=== PATIENT | female | born 1965 | race African-American/Black ===

== ENCOUNTER → 2016-11-28 | Outpatient (CLI) | payer OTHER ==
--- NOTE | 2016-11-28 13:42 | KCIC ---
Two views left foot Indication:Reason For Study Reason: LEFT ANKLE/FOOT PAIN AND SWELLING OFF AND ON 1 YR INCREASING THE PAST MONTH / Spl. Instructions: NO INJURY / History: FINDINGS No fracture dislocation. No periosteal reaction or focal bone lesion. Joint spaces are well maintained. Soft tissues are unremarkable. IMPRESSION Normal exam of the left foot. Electronically signed by: Semaj Ruffin (Nov 28, 2016 13:41:05)
--- NOTE | 2016-11-28 13:42 | KCIC ---
Two views left ankle INDICATION: Reason For Study Reason: LEFT ANKLE/FOOT PAIN AND SWELLING OFF AND ON 1 YR INCREASING THE PAST MONTH / Spl. Instructions: NO INJURY / History: FINDINGS: The ankle mortise is intact. The talar dome is well centered within the tibial plafond. There is no widening of the tibiofibular syndesmosis. Ankle joint space is preserved. Subtalar joint is intact. Soft tissues are within normal limits. IMPRESSION: Normal left ankle. Electronically signed by: Semaj Ruffin (Nov 28, 2016 13:41:34)
--- NOTE | 2016-11-28 13:43 | KCIC ---
Two-view chest. Indication:Reason For StudyReason: ACUTE MID ANTERIOR CHEST WALL PAIN OCCURING ONCE 11/26/16 AND AGAIN 11/27/16 / Spl. Instructions: NO OTHER SYMPTOMS / History: FINDINGS: Heart size is normal. Pulmonary vasculature is within normal limits. No pleural effusion or consolidating infiltrate. No pneumothorax. The mediastinal contours are within normal limits. IMPRESSION: Negative two-view chest. Electronically signed by: Semaj Ruffin (Nov 28, 2016 13:42:05)
== END | disposition home or self-care (01) ==
LOC: KCIC 12:42
PROVIDERS: ATTEND Nurse Practitioner Family
DX: M79.672 Pain in left foot (principal); M79.89 Other specified soft tissue disorders; M25.572 Pain in left ankle and joints of left foot; R07.89 Other chest pain
CPT/HCPCS: 71020; 73600; 73620

== ENCOUNTER → 2017-01-06 | Outpatient (CLI) | payer OTHER ==
--- NOTE | 2017-01-06 09:56 | KCIC ---
PROCEDURE Right upper extremity sonogram. HISTORY Pain at prior thrombectomy surgical site. TECHNIQUE Sonographic imaging of the right upper extremity at the site of palpable concern was performed. COMPARISON None. FINDINGS There is no suspicious sonographic finding within the right upper extremity at the site of palpable concern. No superficial or venous thrombus is seen within this location. There is no fluid collection. IMPRESSION Unremarkable right upper extremity sonogram at the site of palpable concern. Continued clinical followup of palpable abnormalities is recommended. Electronically signed by: Nicolle Poe (Jan 06, 2017 09:54:32)
--- NOTE | 2017-01-06 10:57 | KCIC ---
Bilateral digital screening mammograms with CAD: HISTORY COMPARISON Comparison is made to previous studies dated back to 05/15/2011. FINDINGS Breast density category B. The skin and nipples show no abnormalities. No abnormal lymph nodes are seen in the axilla. The breast parenchyma shows scattered fibroglandular density. There continues to be a small nodule consistent with an intramammary lymph node in the 10 o'clock B position of the right breast. There are no dominant masses, suspicious calcifications or architectural distortions. Benign appearing calcifications are present IMPRESSION No evidence of malignancy. Recommend routine annual mammographic screening. This study was interpreted with the benefit of Computerized Aided Detection (CAD). Mammography is not 100% sensitive in detecting breast cancer. Therefore, a self breast exam and a clinical breast exam are very important. A negative mammogram does not negate a clinically suspicious finding and should not result in a delay in biopsying a clinically suspicious abnormality. BI-RADS category 2. Benign. This patient's information has been entered into a reminder system for the patient to be notified with the results of this examination and a target date for her next mammograms. Electronically signed by: Jacey Heath MD (Jan 06, 2017 10:55:31)
== END | disposition home or self-care (01) ==
LOC: KCIC MAMMO 09:07
PROVIDERS: ATTEND Family Medicine
DX: Z12.31 Encounter for screening mammogram for malignant neoplasm of breast (principal); M79.604 Pain in right leg
CPT/HCPCS: 76881; G0202; 77067

== ENCOUNTER → 2018-08-06 | Outpatient (CLI) | payer BC ==
--- NOTE | 2018-08-06 17:39 | KCIC ---
Bilateral digital screening mammograms: Reason for examination: Routine screening. Comparison is made to previous studies dated back to 01/12/2015. Interpretation was made with the benefit of CAD. The skin and nipples show no abnormalities. No abnormal axillary lymph nodes are seen. The breast parenchyma shows scattered fibroglandular density. (Breast density: Category B.) There continues to be a small nodule consistent with an intramammary lymph node at the 10:00 B position of the right breast. There are no new dominant masses, suspicious calcifications or architectural distortions. A few benign calcifications are again seen. Impression: No evidence of malignancy. Recommend routine screening. BI-RADS Category 2: Benign. "Our facility is accredited by the [employer] Mammography Program." This patient's information has been entered into a reminder system for the patient to be notified with the results of her examination and a target date for the next mammogram. Electronically signed by: Digna Heath MD (08/06/2018 5:35 PM) [id number]
== END | disposition home or self-care (01) ==
LOC: KCIC MAMMO 15:46
PROVIDERS: ATTEND Family Medicine
DX: Z12.31 Encounter for screening mammogram for malignant neoplasm of breast (principal); N63.11 Unspecified lump in the right breast, upper outer quadrant
CPT/HCPCS: 77067

== ENCOUNTER → 2018-08-25 | Outpatient (CLI) | payer BC ==
--- NOTE | 2018-08-25 16:59 | KCIC ---
KNEE LEFT 3V History: Left knee pain after a fall August 07, 2018.. Comparison: None are available Very mild degenerative spurring. No acute fracture or aggressive bone destruction. No significant soft tissue abnormality. IMPRESSION: Mild degenerative change. No acute findings. Electronically signed by: Abdifatah Duncan MD (08/25/2018 4:56 PM) [facility]
== END | disposition home or self-care (01) ==
LOC: KCIC 15:23
PROVIDERS: ATTEND Nurse Practitioner Family
DX: M25.562 Pain in left knee (principal); S80.02XA Contusion of left knee, initial encounter; S89.92XA Unspecified injury of left lower leg, initial encounter; M17.12 Unilateral primary osteoarthritis, left knee; W19.XXXA Unspecified fall, initial encounter; Y93.89 Activity, other specified; Y92.89 Other specified places as the place of occurrence of the external cause; Y99.8 Other external cause status
CPT/HCPCS: 73562

== ENCOUNTER → 2018-09-01 | Outpatient (CLI) | payer BC ==
--- NOTE | 2018-09-01 17:13 | KCIC ---
MR of the left knee Indication: Left knee pain medially, anterior to the first week of August. Swelling. Technique: The standard multiplanar sequences are obtained. FINDINGS: Artifact: No significant image degradation. Medial meniscus:Intact. Lateral meniscus: Intact. Anterior cruciate ligament: Intact Posterior cruciate ligament: Intact Medial collateral ligament: Intact. Lateral structures: * Iliotibial band: Intact. * Lateral collateral ligament: Intact. * Biceps femoris tendon: Intact * Popliteus tendon attachment: Intact Extensive mechanism: * Patellar tendon: Intact * Quadriceps tendon: Intact * Retinacular structures: Intact Fluid: Small joint effusion. No significant Agarwal's cyst. Intra-articular bodies: None visualized Joint compartments * patellofemoral joint: Severe chondromalacia of the patella. * medial compartment: Moderate chondromalacia. * lateral compartment: Chondromalacia, severe at the lateral tibial plateau. Bones: Lesion within the distal femoral metaphysis, marginating the growth plate scar, measures 7 mm, and has an appearance compatible with a small enchondroma or cartilaginous rest. No significant bone lesion. No acute fracture. Soft tissue: Unremarkable Impression: 1. Primary osteoarthritis. 2. No evidence of meniscal tear or internal derangement. Electronically signed by: Abdifatah Duncan MD (09/01/2018 5:10 PM) [facility]
== END | disposition home or self-care (01) ==
LOC: KCIC MRI 16:09
PROVIDERS: ATTEND Nurse Practitioner Family
DX: M17.12 Unilateral primary osteoarthritis, left knee (principal); M22.42 Chondromalacia patellae, left knee; M25.462 Effusion, left knee
CPT/HCPCS: 73721

== ENCOUNTER → 2020-09-25 | Outpatient (CLI) | payer BC ==
--- NOTE | 2020-09-25 17:02 | KCIC ---
Bilateral digital screening mammograms and tomosynthesis Reason for examination: Routine screening. Comparison is made to previous study dated August 06, 2018 and priors Routine CC and MLO digital views obtained. Interpretation was made with the benefit of CAD. The skin and nipples show no abnormalities. No abnormal lymph nodes are seen. The breast parenchyma is scattered fibroglandular elements. (Breast density: Category B.) There are no suspicious masses, suspicious calcifications or architectural distortions. Right upper outer breast intramammary lymph node is stable. There is mild nodularity of the glandular tissue. Benign calcifications. Impression: Negative mammogram. Recommend routine screening. BI-RADS Category 2: Benign. "Our facility is accredited by the [employer] Mammography Program." This patient's information has been entered into a reminder system for the patient to be notified with the results of her examination and a target date for the next mammogram. Electronically signed by: José Manuel Neumann MD (09/25/2020 4:59 PM) [id number]
== END ==
LOC: KCIC MAMMO 14:21
PROVIDERS: ATTEND Family Medicine
DX: Z12.31 Encounter for screening mammogram for malignant neoplasm of breast (principal)
CPT/HCPCS: 77063; 77067

== ENCOUNTER → 2021-10-03 | Outpatient (CLI) | payer BC ==
--- NOTE | 2021-10-03 13:50 | KCIC ---
Bilateral digital screening mammograms with 3-D tomosynthesis: Reason for examination: Routine screening. Comparison is made to previous studies dated back to 01/03/2016. Bilateral mammograms in CC and oblique projections were obtained with 2-D imaging and 3-D tomosynthes is imaging on a Siemens Inspiration unit and reviewed on the workstation. Interpretation was made keshawn winters the benefit of CAD. The skin and nipples show no abnormalities. No abnormal axillary lymph nodes are seen. The breast par enchyma shows scattered fatty and fibroglandular density. (Breast density: Category B.) There continu es to be a small nodule consistent with an intramammary lymph node at the 10:00 C position of the rig ht breast which is stable. There are no new dominant masses, suspicious calcifications or architectur al distortion. Benign calcifications are present. Impression: No evidence of malignancy. Recommend routine screening. BI-RAD Category 2: Benign. "Our facility is accredited by the [employer] Mammography Program." This patient's information has been entered into a reminder system for the patient to be notified wit h the results of her examination and a target date for the next mammogram. Electronically signed by: Digna Heath MD (10/03/2021 1:47 PM) [email or web address]
== END ==
LOC: KCIC MAMMO 12:35
PROVIDERS: ATTEND Family Medicine
DX: Z12.31 Encounter for screening mammogram for malignant neoplasm of breast (principal)
CPT/HCPCS: 77063; 77067